=== PATIENT | male | born 1980 | race Caucasian/White ===

== ENCOUNTER 2019-06-28 09:40 | Emergency (ER) | payer BC ==
[2019-06-28 10:18] LABS: Basophils % 0.9 % (0-1.3); Hematocrit 42.2 % (39.6-49.0); Lymphocytes % 18.9 % (15.3-44.8); MPV 9.3 fL (7.6-11.3)
[2019-06-28 10:19] LABS: Protime INR 1.11
[2019-06-28 10:36] LABS: ALT/SGPT 53 U/L (12-78); AST/SGOT 33 U/L (15-37); Albumin 3.9 g/dL (3.4-5.0); Alkaline Phosphatase 73 U/L (45-117); BUN Blood Urea Nitrogen 15 mg/dL (7-18); Bicarbonate 24 mmol/L (21-32); Bilirubin Direct 0.1 mg/dL (0-0.2); Bilirubin Total 0.4 mg/dL (0.2-1.0); Glucose Level 117 mg/dL (74-106); Magnesium 2.3 mg/dL (1.8-2.4); NT PRO-BNP 21 pg/mL (<125); Protein, Total 7.1 g/dL (6.4-8.2); Sodium Level 139 mmol/L (136-145); Troponin (Emerg Dept Use Only) < 0.02 ng/mL (0.0-0.045)
--- NOTE | 2019-06-28 11:31 | EDPHYS ---
Physician Documentation [facility] Name: Elroy Butler Age: 38 yrs Sex: Male : 1980 Arrival Date: 06/28/2019 Time: 09:41 Bed 20 Private MD: ED Physician Chilo Augustin HPI: 06/28 11:25 This 38 yrs old Male presents to ER via Ambulatory with complaints of Chest kb Pain. 11:25 The patient or guardian reports chest pain that is located primarily in the diaphragm. kb Onset: a few weeks ago, woke him from sleep this morning. The pain does not radiate. Associated signs and symptoms: Pertinent positives: nausea. The chest pain is described as sharp. Duration: The patient or guardian reports multiple episodes. Modifying factors: The symptoms are alleviated by nothing. the symptoms are aggravated by deep breath, eating. Severity of pain: At its worst the pain was moderate in the emergency department the pain has improved. The patient has experienced similar episodes in the past. The patient has not recently seen a physician. Pt reports chest pain (points to upper abd) that has been intermittent for a few weeks. Reports pain comes on after eating and goes away on its own. Reports the pain woke him up this morning at 0630 and went away around 0700. Reports it feels like something is stopping him from taking a deep breath under right ribs. . Historical: - Allergies: 09:48 PENICILLINS; hb - Home Meds: 09:48 None [Active]; hb - PMHx: 09:48 None; hb - PSHx: 09:48 Appendectomy; Hand - Right; Elbow - Right; hb - Immunization history:: Adult Immunizations up to date. - Social history:: Smoking status: Patient/guardian denies using tobacco. - Ebola Screening: : No symptoms or risks identified at this time. ROS: 11:20 Constitutional: Negative for fever, chills, and weight loss, ENT: Negative for injury, kb pain, and discharge, Neck: Negative for injury, pain, and swelling, Respiratory: Negative for shortness of breath, cough, wheezing, and pleuritic chest pain, Abdomen/GI: Negative for abdominal pain, nausea, vomiting, diarrhea, and constipation, Back: Negative for injury and pain, : Negative for injury, bleeding, discharge, and swelling, MS/Extremity: Negative for injury and deformity, Skin: Negative for injury, rash, and discoloration, Neuro: Negative for headache, weakness, numbness, tingling, and seizure. 11:20 Cardiovascular: Positive for chest pain. Exam: 11:20 Constitutional: This is a well developed, well nourished patient who is awake, alert, kb and in no acute distress. Head/Face: Normocephalic, atraumatic. ENT: Nares patent. No nasal discharge, no septal abnormalities noted. Tympanic membranes are normal and external auditory canals are clear. Oropharynx with no redness, swelling, or masses, exudates, or evidence of obstruction, uvula midline. Mucous membranes moist. Neck: Trachea midline, no thyromegaly or masses palpated, and no cervical lymphadenopathy. Supple, full range of motion without nuchal rigidity, or vertebral point tenderness. No Meningismus. Chest/axilla: Normal chest wall appearance and motion. Nontender with no deformity. No lesions are appreciated. Cardiovascular: Regular rate and rhythm with a normal S1 and S2. No gallops, murmurs, or rubs. Normal PMI, no JVD. No pulse deficits. Respiratory: Lungs have equal breath sounds bilaterally, clear to auscultation and percussion. No rales, rhonchi or wheezes noted. No increased work of breathing, no retractions or nasal flaring. Back: No spinal tenderness. No costovertebral tenderness. Full range of motion. Skin: Warm, dry with normal turgor. Normal color with no rashes, no lesions, and no evidence of cellulitis. MS/ Extremity: Pulses equal, no cyanosis. Neurovascular intact. Full, normal range of motion. Neuro: Awake and alert, GCS 15, oriented to person, place, time, and situation. Cranial nerves II-XII grossly intact. Motor strength 5/5 in all extremities. Sensory grossly intact. Cerebellar exam normal. Normal gait. 11:20 Abdomen/GI: Inspection: abdomen appears normal, Bowel sounds: normal, in all quadrants, Palpation: soft, in all quadrants, mild abdominal tenderness, in the right upper quadrant. Vital Signs: 09:48 BP 134 / 80; Pulse 89; Resp 16; Temp 97.9; Pulse Ox 98% ; Weight 124.74 kg; Height 6 hb ft. 3 in. (190.50 cm); Pain 5/10; 11:28 BP 137 / 79; Pulse 81; Resp 18; Pulse Ox 99% on R/A; Pain 5/10; em 09:48 Body Mass Index 34.37 (124.74 kg, 190.50 cm) hb MDM: 09:47 Patient medically screened. kb 11:20 Data reviewed: vital signs, nurses notes. Data interpreted: Pulse oximetry: on room air kb is 98 %. Interpretation: normal. 11:25 Counseling: I had a detailed discussion with the patient and/or guardian regarding: the kb historical points, exam findings, and any diagnostic results supporting the discharge/admit diagnosis, lab results, radiology results, the need for outpatient follow up, a general surgeon, a energy analyst, to return to the emergency department if symptoms worsen or persist or if there are any questions or concerns that arise at home. 11:29 TARAH Risk Score: TOTAL SCORE = 0. ED course: HEART score: 0. kb 06/28 09:48 Order name: Basic Metabolic Panel; Complete Time: 10:37 kb 06/28 09:48 Order name: CBC with Diff; Complete Time: 10:27 kb 06/28 09:48 Order name: LFT's; Complete Time: 10:37 kb 06/28 09:48 Order name: Magnesium; Complete Time: 10:37 kb 06/28 09:48 Order name: NT PRO-BNP; Complete Time: 10:37 kb 06/28 09:48 Order name: PT-INR; Complete Time: 10:27 kb 06/28 09:48 Order name: Troponin (emerg Dept Use Only); Complete Time: 10:37 kb 06/28 09:48 Order name: XRAY Chest (1 view) kb 06/28 09:48 Order name: EKG; Complete Time: 09:48 kb 06/28 09:48 Order name: Cardiac monitoring; Complete Time: 10:06 kb 06/28 09:48 Order name: EKG - Nurse/Tech; Complete Time: 10:06 kb 06/28 09:48 Order name: IV Saline Lock; Complete Time: 10:06 kb 06/28 09:51 Order name: Lipase; Complete Time: 10:27 kb 06/28 09:51 Order name: US Abdomen Limited kb 06/28 09:48 Order name: Labs collected and sent; Complete Time: 10:06 kb 06/28 09:48 Order name: O2 Per Protocol; Complete Time: 10:06 kb 06/28 09:48 Order name: O2 Sat Monitoring; Complete Time: 10:06 kb Administered Medications: No medications were administered Disposition: 17:42 Co-signature as Attending Physician, Chilo Augustin MD Did not see or evaluate the ps1 patient. Signing the chart for administrative purposes. Not an endorsement of care provided. . Disposition: 06/28/19 11:30 Discharged to Home. Impression: Cholelithiasis, Upper abdominal pain, unspecified. - Condition is Stable. - Discharge Instructions: Biliary Colic, Adult, Cholelithiasis, [id number]. - Prescriptions for Bentyl 20 mg Oral Tablet - take 1 tablet by ORAL route every 6 hours As needed; 20 tablet. Zofran 4 mg Oral Tablet - take 1 tablet by ORAL route every 6 hours As needed; 20 tablet. - Medication Reconciliation Form, Thank You Letter, Antibiotic Education, Prescription Opioid Use form. - Follow up: Emergency Department; When: As needed; Reason: Worsening of condition. Follow up: Private Physician; When: 2 - 3 days; Reason: Recheck today's complaints, Continuance of care, Re-evaluation by your physician. Signatures: Dispatcher [employer] EDMS Charlotte Strickland, SCAFFOLD BUILDER-Rashaun SCAFFOLD BUILDER-Rj Cornejo, SAM THOMASN Aiyana Healy, RN RN Chilo Larson MD MD ps1 Corrections: (The following items were deleted from the chart) 11:40 11:30 06/28/2019 11:30 Discharged to Home. Impression: Cholelithiasis; Upper abdominal em pain, unspecified. Condition is Stable. Forms are Medication Reconciliation Form, Thank You Letter, Antibiotic Education, Prescription Opioid Use. Follow up: Emergency Department; When: As needed; Reason: Worsening of condition. Follow up: Private Physician; When: 2 - 3 days; Reason: Recheck today's complaints, Continuance of care, Re-evaluation by your physician. kb
--- NOTE | 2019-06-28 11:31 | ER ---
Nurse's Notes [facility] Name: Elroy Butler Age: 38 yrs Sex: Male : 1980 Arrival Date: 06/28/2019 Time: 09:41 Bed 20 Private MD: Diagnosis: Cholelithiasis;Upper abdominal pain, unspecified Presentation: 06/28 09:46 Presenting complaint: Substernal chest pain that woke him from sleep at 0630 today. hb Also c/o nausea and mild SOB. Transition of care: patient was not received from another setting of care. Onset of symptoms was June 28, 2019 at 06:30. Risk Assessment: Do you want to hurt yourself or someone else? Patient reports no desire to harm self or others. Initial Sepsis Screen: Does the patient meet any 2 criteria? No. Patient's initial sepsis screen is negative. Does the patient have a suspected source of infection? No. Patient's initial sepsis screen is negative. Care prior to arrival: None. 09:46 Method Of Arrival: Ambulatory hb 09:46 Acuity: ALVARO 3 hb Historical: - Allergies: 09:48 PENICILLINS; hb - Home Meds: 09:48 None [Active]; hb - PMHx: 09:48 None; hb - PSHx: 09:48 Appendectomy; Hand - Right; Elbow - Right; hb - Immunization history:: Adult Immunizations up to date. - Social history:: Smoking status: Patient/guardian denies using tobacco. - Ebola Screening: : No symptoms or risks identified at this time. Screenin:04 Abuse screen: Denies threats or abuse. Nutritional screening: No deficits noted. em Tuberculosis screening: No symptoms or risk factors identified. Fall Risk None identified. Assessment: 10:04 General: Appears in no apparent distress. comfortable, Behavior is calm, cooperative, em Denies fever. Pain: Complains of pain in xyphoid area Pain does not radiate. Quality of pain is described as sharp, shooting, Pain began 3 weeks ago but became worse this morning. Neuro: Level of Consciousness is awake, alert, obeys commands, Oriented to person, place, time, situation, Appropriate for age. Cardiovascular: Denies diaphoresis, vomiting, Heart tones S1 S2 present Capillary refill < 3 seconds Patient's skin is warm and dry. Rhythm is sinus rhythm. Respiratory: Airway is patent Respiratory effort is even, unlabored, Respiratory pattern is regular, symmetrical. GI: Abdomen is flat, Patient currently denies nausea, vomiting. Derm: Skin is intact, is healthy with good turgor, Skin is pink, warm \T\ dry. Musculoskeletal: Capillary refill < 3 seconds, Range of motion: intact in all extremities. 11:28 Reassessment: Patient appears in no apparent distress at this time. Patient and/or em family updated on plan of care and expected duration. Pain level reassessed. Patient is alert, oriented x 3, equal unlabored respirations, skin warm/dry/pink. Vital Signs: 09:48 BP 134 / 80; Pulse 89; Resp 16; Temp 97.9; Pulse Ox 98% ; Weight 124.74 kg; Height 6 hb ft. 3 in. (190.50 cm); Pain 5/10; 11:28 BP 137 / 79; Pulse 81; Resp 18; Pulse Ox 99% on R/A; Pain 5/10; em 09:48 Body Mass Index 34.37 (124.74 kg, 190.50 cm) hb ED Course: 09:41 Patient arrived in ED. as 09:43 Rj Krishnamurthy LVN is Primary Nurse. em 09:46 Charlotte Strickland FNP-C is PHCP. kb 09:46 Chilo Augustin MD is Attending Physician. kb 09:47 Triage completed. hb 09:48 Arm band placed on. hb 10:02 XRAY Chest (1 view) In Process Unspecified. EDMS 10:04 Patient has correct armband on for positive identification. Placed in gown. Bed in low em position. Call light in reach. stamp pad maker on. Pulse ox on. NIBP on. 10:04 Patient maintains SpO2 saturation greater than 95% on room air. em 10:08 Initial lab(s) drawn, by me, sent to lab. Inserted saline lock: 20 gauge in right hand, em1 using aseptic technique. Blood collected. 11:05 Ultrasound completed. Patient tolerated well. Notified Primary Nurse . sg3 11:07 US Abdomen Limited In Process Unspecified. EDMS 11:32 No provider procedures requiring assistance completed. IV discontinued, intact, em bleeding controlled, No redness/swelling at site. Pressure dressing applied. Administered Medications: No medications were administered Outcome: 11:30 Discharge ordered by . kb 11:32 Discharged to home ambulatory, with family. em 11:32 Condition: good 11:32 Discharge instructions given to patient, family, Instructed on discharge instructions, follow up and referral plans. medication usage, Demonstrated understanding of instructions, follow-up care, medications, Prescriptions given X 2. 11:40 Patient left the ED. em Signatures: Dispatcher [employer] EDCharlotte Mosley, END FINDER TWISTING DEPARTMENT-C END FINDER TWISTING DEPARTMENT-Rj Cornejo, MANAGER ADVERTISING MANAGER ADVERTISING robson Willams, Hunter Patel em1 Aiyana Kulkarni, RN RN Shannan Lozada 3
[2019-06-28 11:44] VITALS: TEMP 97.9
[2019-06-28 11:45] VITALS: BP 137/79; O2SAT 99
--- NOTE | 2019-06-28 12:23 | RAD REPORT ---
EXAM DESCRIPTION: US - Abdomen Exam Limited - 06/28/2019 11:06 am CLINICAL HISTORY: ABD PAIN COMPARISON: No comparisons FINDINGS: The gallbladder demonstrates multiple shadowing gallstones. No pericholecystic fluid or ga llbladder wall thickening. The common bile duct is normal measuring 3 mm. The liver demonstrates no findings of intrahepatic biliary dilatation. IMPRESSION: Cholelithiasis.
--- NOTE | 2019-06-28 12:29 | RAD REPORT ---
EXAM DESCRIPTION: RAD - Chest Single View - 06/28/2019 10:01 am CLINICAL HISTORY: CHEST PAIN Chest pain. COMPARISON: CHEST SINGLE VIEW dated 04/16/2009 FINDINGS: Portable technique limits examination quality. Linear opacities in the left lung base are present likely representing subsegmental atelectasis or in filtrate. The lungs are otherwise clear. The heart is normal in size. No displaced fractures.
--- NOTE | 2019-06-28 23:06 | EKG ---
Test Date: 2019-06-28 Test Time: 09:52:58 Cupola Worker: JUAN MEASUREMENT RESULTS: Intervals: Rate: 93 TN: 130 QRSD: 88 QT: 350 QTc: 435 Sontag: P: 21 TN: 130 QRS: 14 T: 26 INTERPRETIVE STATEMENTS: Normal sinus rhythm Normal ECG Compared to ECG 04/16/2009 16:03:29 Sinus bradycardia no longer present Electronically Signed On 06-28-19 23:05:31 LINER INSERTER by Warren Berkowitz
== END 2019-06-28 11:40 | disposition home or self-care (01) ==
LOC: ER 09:40
DX: K80.20 Calculus of gallbladder without cholecystitis without obstruction (principal); R10.10 Upper abdominal pain, unspecified; Z88.0 Allergy status to penicillin
CPT/HCPCS: 36415; 71045; 76705; 80048; 80076; 83690; 83735; 83880; 84484; 85025; 85610; 93005; 99285

== ENCOUNTER 2019-07-01 08:45 | Day surgery (SDC) | payer BC ==
[2019-07-01] MEDS ORDERED: Ringers Lactate 1,000 ML IV ONE (09:22)
[2019-07-01] MEDS ORDERED: FENTANYL CITR 100 MCG/2 ML ONE ×2 (10:25→11:00)
[2019-07-01] MEDS ORDERED: PROPOFOL 200 MG/20 ML VIAL IV ONE (10:25)
[2019-07-01] MEDS ORDERED: ROCURONIUM 50 MG/5 ML VIAL IV ONE (10:25)
[2019-07-01] MEDS ORDERED: LIDOCAINE 1% MPF 5 ML VIAL ONE (10:25)
[2019-07-01] MEDS ORDERED: MIDAZOLAM HCL 2 MG/2 ML INJ ONE ×2 (10:25→12:33)
[2019-07-01] MEDS: CIPROFLOXACIN 400mg IV 400 MG/200 ML BAG IV ONE ×2 (10:42→10:50)
[2019-07-01] MEDS ORDERED: NEOSTIGMINE 1 MG/ML -10 ML VIAL ONE (11:22)
[2019-07-01] MEDS ORDERED: KETOROLAC 30 MG/ML INJ ONE (11:22)
[2019-07-01] MEDS ORDERED: GLYCOPYRROLATE 0.2 MG/ML SYR ONE ×2 (11:22→11:24)
[2019-07-01] MEDS ORDERED: ONDANSETRON 4 MG/2 ML VIAL ONE (11:22)
--- NOTE | 2019-07-01 11:26 | P.BOP ---
Preoperative diagnosis: acute cholecystitis, symptomatic cholelithiasis Postoperative diagnosis: same Primary procedure: Laparoscopic cholecystectomy Stringing Machine Operator: RUEL COLINDRES (LIBRARY SCIENCE INSTRUCTOR) Estimated blood loss: <10cc Specimen: gb Findings: as above Anesthesia: General Complications: None Transferred to: Recovery Room Condition: Good
[2019-07-01] MEDS: HYDROMORPHONE HCL 1 MG/ML INJ ONE ×4 (11:52→12:27)
[2019-07-01] MEDS ORDERED: PROMETHAZINE 25 MG/ML VIAL ONE (11:53)
[2019-07-01] MEDS ORDERED: HYDROMORPHONE HCL 1 MG/ML INJ ONE (12:06)
[2019-07-01] MEDS ORDERED: CODEINE 30MG/APAP 300MG TAB ONE (12:51)
[2019-07-01 13:03] VITALS: BP 121/52; TEMP 97.8; O2SAT 98
--- NOTE | 2019-07-01 23:20 | OP ---
Date of Procedure: 07/01/2019 Surgeon: Boston Willams MD Page Makeup System Operator: Hedy Olvera. Preoperative Diagnoses: Acute cholecystitis, symptomatic cholelithiasis. Postoperative Diagnoses: Acute cholecystitis, symptomatic cholelithiasis. Procedure: Laparoscopic cholecystectomy. Estimated Blood Loss: Less than 10 mL. Anesthesia: General plus local. Indications: This is the case of a 38-year-old patient, comes to us with the above diagnosis. Fully explained the benefits, alternatives, and risks of laparoscopic, possible open cholecystectomy, whic h include, but not limited to infection, bleeding, damage to adjacent structures, anesthesia complica tions, choledocholithiasis, bile leak, pancreatitis, DE, and even . He also understands this ma y not relieve any symptoms. He might need more than one surgical intervention. He understood, apple d a consent. Description Of Procedure: Patient was brought to the operating room, placed in supine position. Ane sthesia was given without complication. Abdominal area was prepped and draped in usual sterile fashi on. Marcaine 0.5% was injected for local anesthetic followed by sharp incision of the skin in the in fraumbilical region. Incision was carried down to fascia, which was opened under direct vision. Zana ryl #1 placed inside of the fascia. Dilcia trocar was carefully introduced and no bleeding was obtai frederick. I placed 3 more trocars, 5 mm each one of them, in the right upper quadrant using same techniqu e and under direct visualization. This allowed me to put a grasper in the fundus of the gallbladder, another grasper in the infundibulum, retracted the gallbladder in the inferolateral fashion exposing the triangle of Calot, obtaining critical view of safety. Cystic duct and cystic artery were clearl y isolated and free circumferentially and a connection between those and the gallbladder was clearly identified. I proceeded to ligate those by using at least 3 clips proximal, 1 clip distal, and ligat ion in the middle. Same was done with the cystic artery. No bile leak. No bleeding. The gallbladd er was removed from the liver using Bovie cauterizer and removed from abdominal cavity using the Endo Catch through the umbilical incision. The area was inspected once again. No bile leak. No bleeding . At that moment, I proceeded to remove the trocars under direct vision. Deflated the pneumoperiton eum. Closed the fascia with #1 Vicryl. Irrigated subcutaneous tissue, closed that with 3-0 chromic and the skin in a subcuticular fashion with 3-0 chromic and Steri-Strips on top. Sponge count and in strument counts were correct. Patient tolerated the procedure well. Patient was sent to the [facility] in stable condition. LORETTA/CARMEN Voice ID: [id number] Report ID: [id number]
--- NOTE | 2019-07-02 00:02 | DS ---
Date of Discharge: 07/01/2019 Diagnoses: Acute cholecystitis, symptomatic cholelithiasis. Procedure: Laparoscopic cholecystectomy. Disposition: Home. Activity: As tolerated. No heavy lifting. Followup: Follow up in my office in 1 week. Call for appointment [phone]. Keep area dry for 48 ho urs, then may shower. Keep Steri-Strip intact. Medications: Include Tylenol No. #3 q.4 hours p.r.n. pain, Cipro 500 p.o. q.12. LORETTA/CARMEN Voice ID: [id number] Report ID: [id number]
== END 2019-07-01 13:38 | disposition home or self-care (01) ==
LOC: OR 08:45
PROVIDERS: ATTEND Surgery
PROC: 0FT44ZZ Resection of Gallbladder, Percutaneous Endoscopic Approach (ICD-10-PCS; principal; 2019-07-01 11:15)
DX: K80.12 Calculus of gallbladder with acute and chronic cholecystitis without obstruction (principal); Z88.0 Allergy status to penicillin; Z80.0 Family history of malignant neoplasm of digestive organs
CPT/HCPCS: 88304; 47562; J2704; J2710; J2550; J2250 ×2; J3010 ×2; J1170 ×3; J7120; J2405; J0744